=== PATIENT | female | born 1980 ===

== ENCOUNTER 2022-12-29 10:21 | Outpatient (CLI) | payer OTHER ==
[~2022-12-29 10:21] MED LIST: TRAMADOL HCL-AP1 TAB PO
== END 2022-12-29 10:23 | disposition home or self-care (01) ==
LOC: SONOGRAMA 10:21
PROVIDERS: ATTEND Pathology Anatomic Pathology & Clinical Pathology
DX: D11.0 Benign neoplasm of parotid gland (principal); L04.0 Acute lymphadenitis of face, head and neck